=== PATIENT | male | born 1955 | race Caucasian/White ===

== ENCOUNTER → 2017-06-17 | Outpatient (CLI) | payer BC ==
--- NOTE | 2017-06-17 09:11 | US ---
EXAMINATION TYPE: US carotid duplex BILAT DATE OF EXAM: 06/17/2017 COMPARISON: NONE CLINICAL HISTORY: I25.10 Atherosclerotic heart disease, I10 Hyperten. EXAM MEASUREMENTS: RIGHT: Peak Systolic Velocity (PSV) cm/sec ----- Right CCA: 91.9 ----- Right ICA: 84.4 ----- Right ECA: 121.7 ICA/CCA ratio: 0.9 RIGHT: End Diastole cm/sec ----- Right CCA: 22.4 ----- Right ICA: 28.2 ----- Right ECA: 28.0 LEFT: Peak Systolic Velocity (PSV) cm/sec ----- Left CCA: 91.7 ----- Left ICA: 69.4 ----- Left ECA: 123.5 ICA/CCA ratio: 0.8 LEFT: End Diastole cm/sec ----- Left CCA: 21.3 ----- Left ICA: 18.7 ----- Left ECA: 27.6 VERTEBRALS (direction of flow): Right Vertebral: Antegrade Left Vertebral: Antegrade Rhythm: Normal Heterogeneous plaque noted at bilateral bulbs with no significant stenosis seen. IMPRESSION: 1. Minimal grayscale plaquing at the carotid bulbs with hemodynamically significant stenosis within e ither carotid system. 2. Symmetrically prominent velocities likely relate to underlying hypertension.
== END | disposition home or self-care (01) ==
LOC: RADUSWWP 08:19
PROVIDERS: ATTEND Internal Medicine Cardiovascular Disease
DX: I65.23 Occlusion and stenosis of bilateral carotid arteries (principal); I25.10 Atherosclerotic heart disease of native coronary artery without angina pectoris; I10 Essential (primary) hypertension; I21.4 Non-ST elevation (NSTEMI) myocardial infarction
CPT/HCPCS: 36415; 80053; 80061; 82272; 84153; 84439; 84443; 85027; 93880

== ENCOUNTER → 2017-06-17 | Outpatient (CLI) | payer BC ==
[2017-06-17 08:31] LABS: CH 31.7; CHCM 33.6; HCT 50.9 % (39.0-53.0); HGB 16.6 gm/dL (13.0-17.5); MCHC 32.7 g/dL (31.0-37.0); MCV 94.9 fL (80.0-100.0); Mean Platelet Volume 7.9; RBC 5.36 m/uL (4.30-5.90); RDW 15.5 % (11.5-15.5)
[2017-06-17 13:43] LABS: ALT 38 U/L (21-72); AST 22 U/L (17-59); Alkaline Phosphatase 98 U/L (38-126); Anion Gap 13 mmol/L; Blood Urea Nitrogen 19 mg/dL (9-20); Calcium 9.8 mg/dL (8.4-10.2); Carbon Dioxide 23 mmol/L (22-30); Chloride 107 mmol/L (98-107); Cholesterol 128 mg/dL (<200); Glucose 99 mg/dL (74-99); HDL Cholesterol 53 mg/dL (40-60); Non-African American GFR(MDRD) >60 (>60 ml/min/1.73 sqM); Potassium 4.6 mmol/L (3.5-5.1); Sodium 143 mmol/L (137-145); Total Bilirubin 0.4 mg/dL (0.2-1.3); Total Protein 7.4 g/dL (6.3-8.2)
[2017-06-17 14:51] LABS: Prostate Specific Antigen 0.38 ng/mL (0.00-4.00)
== END | disposition home or self-care (01) ==
LOC: LABWHC1 08:03
PROVIDERS: ATTEND Internal Medicine
DX: I25.10 Atherosclerotic heart disease of native coronary artery without angina pectoris (principal); I11.9 Hypertensive heart disease without heart failure; E78.2 Mixed hyperlipidemia; K21.0 Gastro-esophageal reflux disease with esophagitis; N40.0 Benign prostatic hyperplasia without lower urinary tract symptoms
CPT/HCPCS: 36415; 80053; 80061; 82272; 84153; 84439; 84443; 85027

== ENCOUNTER → 2017-12-22 | Outpatient (CLI) | payer BC ==
[~2017-12-22] MED LIST: REGADENOSON 0.4 MG/5 ML SYRINGE IV ONE
--- NOTE | 2017-12-22 11:25 | EST ---
EXERCISE STRESS AGE: 62 SEX: M HT: 69" WT: 220 PROTOCOL: Lexiscan Cardiolite Stress test HEART RATE REST: 54 BLOOD PRESSURE REST: 112/68 MAXIMUM HEART RATE ACHIEVED: 72 MAXIMUM BLOOD PRESSURE: 136/68 85% MPHR: 133 100% MPHR: 156 INDICATIONS: Chest pain, physical CLINICAL INFORMATION: A 62-year-old male patient referred for a stress test for chest pain. Baseline heart rate 54 beats per minute. Baseline blood pressure 112/68 mmHg. Baseline 12-lead ECG showed normal sinus rhythm with nonspecific ST-segment abnormalities or flattening of the T-waves. Patient received Lexiscan infusion per protocol. There was no significant change in heart rate or blood pressure. No definite ECG evidence for ischemia. No arrhythmias noted. Nuclear portion of the stress test will be reported separately. MMODL / IJN: [id number] /
--- NOTE | 2017-12-22 13:24 | NM ---
EXAMINATION TYPE: NM stress lexiscan cardiolite DATE OF EXAM: 12/22/2017 COMPARISON: NONE HISTORY: I10, I 25.10 TECHNIQUE: After the intravenous administration of 10.18 mCi Tc 99m Sestamibi - Cardiolite resting S PECT images acquired 45 minutes post injection. The patient received 0.4mg Lexiscan, 23.9 mCi Tc 99m Sestamibi - Stress images obtained [address] injection FINDINGS: Review of stress and rest SPECT images demonstrates decreased reaffirms a focal uptake along the infe rior wall left ventricle on stress and rest images extending inferolaterally. Some mild decreased upt analia present along anterior wall left ventricle extending from the apex on stress as compared to rest images is suggested. Gated analysis shows normal wall motion with an estimated left ventricular eject ion fraction of 54 %. IMPRESSION: Findings suggest previous infarct. Suspect there may be pharmacologically induced left ventricular my ocardial ischemia along the anterior apical left ventricle. Report relayed to Marlene at the office of Dr. Keller.
== END | disposition home or self-care (01) ==
LOC: RADNMMAIN 12-21 07:54
PROVIDERS: ATTEND Internal Medicine Cardiovascular Disease
DX: I25.10 Atherosclerotic heart disease of native coronary artery without angina pectoris (principal); I10 Essential (primary) hypertension
CPT/HCPCS: 93017; 78452; A9500; J2785

== ENCOUNTER → 2018-06-02 | Outpatient (CLI) | payer MEDICARE ==
[2018-06-02 08:41] LABS: HCT 50.5 % (39.0-53.0); HGB 16.8 gm/dL (13.0-17.5); MCH 30.4 pg (25.0-35.0); MCHC 33.2 g/dL (31.0-37.0); MCV 91.6 fL (80.0-100.0); Mean Platelet Volume 7.5; Platelet Count 208 k/uL (150-450); RBC 5.52 m/uL (4.30-5.90); RDW 13.7 % (11.5-15.5); WBC 8.9 k/uL (3.8-10.6)
[2018-06-02 10:19] LABS: ALT 28 U/L (21-72); AST 29 U/L (17-59); Albumin 4.4 g/dL (3.5-5.0); Alkaline Phosphatase 75 U/L (38-126); Anion Gap 12 mmol/L; Blood Urea Nitrogen 25 mg/dL (9-20); Calcium 9.8 mg/dL (8.4-10.2); Carbon Dioxide 22 mmol/L (22-30); Chloride 106 mmol/L (98-107); Cholesterol 166 mg/dL (<200); Glucose 97 mg/dL (74-99); HDL Cholesterol 42 mg/dL (40-60); LDL Cholesterol,Calculated 109 mg/dL (0-99); Potassium 4.6 mmol/L (3.5-5.1); Sodium 140 mmol/L (137-145); Total Bilirubin 0.7 mg/dL (0.2-1.3); Total Protein 7.5 g/dL (6.3-8.2); Triglycerides 77 mg/dL (<150)
[2018-06-02 10:36] LABS: T4, Free (Free Thyroxine) 1.04 ng/dL (0.78-2.19)
[2018-06-02 10:49] LABS: Prostate Specific Antigen 0.37 ng/mL (0.00-4.00)
--- NOTE | 2018-06-02 11:12 | XR ---
EXAMINATION TYPE: XR chest 2V DATE OF EXAM: 06/02/2018 COMPARISON: Prior chest x-ray 01/26/2016 HISTORY: Atherosclerotic heart disease TECHNIQUE: Frontal and lateral views of the chest are obtained. FINDINGS: There are prominent lung volumes suggesting COPD. Strand-like densities are present at the lung bases. No pneumothorax or pleural effusion. Cardiomediastinal silhouette, pulmonary vascularity and boom are stable. IMPRESSION: Probable scarring or possibly atelectatic change at the lung bases.
== END | disposition home or self-care (01) ==
LOC: LABWHC1 07:12
PROVIDERS: ATTEND Internal Medicine
DX: Z00.00 Encounter for general adult medical examination without abnormal findings (principal); I11.9 Hypertensive heart disease without heart failure; E03.9 Hypothyroidism, unspecified; I25.10 Atherosclerotic heart disease of native coronary artery without angina pectoris; E78.2 Mixed hyperlipidemia; K21.0 Gastro-esophageal reflux disease with esophagitis; N40.0 Benign prostatic hyperplasia without lower urinary tract symptoms
CPT/HCPCS: 36415; 71046; 80053; 80061; 84153; 84439; 84443; 85027

== ENCOUNTER → 2018-06-29 | Outpatient (CLI) | payer MEDICARE ==
--- NOTE | 2018-06-29 10:44 | CT ---
EXAMINATION TYPE: CT sinus wo con DATE OF EXAM: 06/29/2018 COMPARISON: None HISTORY: Sinusitis CT DLP: 523 mGycm. Automated Exposure Control for Dose Reduction was Utilized. TECHNIQUE: CT scan of the sinuses is performed without contrast, axial images are obtained, coronal r eformatted images are also reviewed. FINDINGS: The paranasal sinuses including the frontal, ethmoid, sphenoid, and maxillary sinuses bila terally are remarkable for inflammatory change in the ethmoid air cells, sphenoid sinus and bilateral maxillary sinus, there may be mucus retention cyst or polyps within the maxillary and frontal sinuse s, ostiomeatal units are patent. There is a deviated nasal septum present. Patient is rotated in Aj ry, suspect a Kentrell cell may be present on the right. Visualized portion of mastoid air cells show no abnormal opacification. The globes are intact bilate rally. IMPRESSION: Pansinusitis. Deviated nasal septum. Additional findings above.
== END | disposition home or self-care (01) ==
LOC: RADCTMAIN 08:06
PROVIDERS: ATTEND Otolaryngology
DX: J32.4 Chronic pansinusitis (principal); J34.2 Deviated nasal septum
CPT/HCPCS: 70486

== ENCOUNTER → 2020-01-27 | Outpatient (CLI) | payer MEDICARE | END | disposition home or self-care (01) | LOC: LABWHC1 12:01 | PROVIDERS: ATTEND Internal Medicine Gastroenterology | DX: Z11.59 Encounter for screening for other viral diseases (principal) | CPT/HCPCS: 87635 ==

== ENCOUNTER → 2020-02-01 | Day surgery (SDC) | payer MEDICARE ==
[2020-01-31 09:44] VITALS: BMI 33.2
[~2020-02-01] MED LIST changes: +LACTATED RINGERS 1,000 ML IV ONE; +LACTATED RINGERS 1,000 ML IV SCH; +LIDOCAINE 1% (10MG/ML) FOR IV START INTRADERMA ONE; +PROPOFOL 10 MG/ML 20 ML VIAL IV ONE; -REGADENOSON 0.4 MG/5 ML SYRINGE IV ONE
[2020-02-01 08:43] VITALS: RESP 18; TEMP 97.8
--- NOTE | 2020-02-01 09:42 | P.PCN ---
Date of Procedure: 02/01/20 Procedure(s) Performed: BRIEF HISTORY: Patient is a 64-year-old pleasant white male scheduled for an elective colonoscopy as a part of evaluation of prior history of colon polyps. Last colonoscopy was 8 years ago. PROCEDURE PERFORMED: Colonoscopy with snare polypectomy. PREOPERATIVE DIAGNOSIS: History of colon polyps IV sedation per Anesthesia. PROCEDURE: After informed consent was obtained, the patient, was brought into the endoscopy unit. IV sedation was administered by Anesthesia under continuous monitoring. Digital rectal examination was normal. Initially the Olympus CF-160 flexible video colonoscope was then inserted in the rectum, gradually advanced into the cecum without any difficulty. Careful examination was performed as the scope was gradually being withdrawn. Ileocecal valve and the appendiceal orifice were visualized and appeared normal. Prep was excellent. Mucosa of the cecum, ascending colon, appeared normal. In the proximal transverse colon there was a 5 mm and 1 cm sessile polyp removed by snare polypectomy. In the descending colon there was a 3 mm and 5 mm polyps removed by snare polypectomy. In the sigmoid colon there was a 5 mm polyp that was 1 by snare polypectomy. Rest of transverse colon, descending colon, sigmoid colon, and rectum appeared normal. In the mid rectum there was a 3 mm polyp removed by snare polypectomy. Retroflexion was performed in the rectum and grade 2 internal hemorrhoids were seen. The patient tolerated the procedure well. IMPRESSION: 5 mm and 1 cm proximal transverse colon polyp status post polypectomy 3 mm 2 descending colon polyp status post polypectomy 5 mm sigmoid colon polyp status post polypectomy 3 mm sessile rectal polyp status post snare polypectomy Small internal hemorrhoids RECOMMENDATIONS: Findings of this examination were discussed with the patient as well as his family.. She was advised to follow with the biopsy results. If the biopsy shows an adenoma he can have a repeat colonoscopy in 3 years
[2020-02-01 10:10] VITALS: BP 166/70; PULSE 59
== END ==
LOC: ORWHC2ENDO 08:16
PROVIDERS: ATTEND Internal Medicine Gastroenterology
DX: Z12.11 Encounter for screening for malignant neoplasm of colon (principal); D12.3 Benign neoplasm of transverse colon; D12.4 Benign neoplasm of descending colon; K63.5 Polyp of colon; D12.8 Benign neoplasm of rectum; K64.1 Second degree hemorrhoids; I25.2 Old myocardial infarction; I25.10 Atherosclerotic heart disease of native coronary artery without angina pectoris; I10 Essential (primary) hypertension; E78.5 Hyperlipidemia, unspecified; G47.33 Obstructive sleep apnea (adult) (pediatric); M19.90 Unspecified osteoarthritis, unspecified site; E07.9 Disorder of thyroid, unspecified; E66.9 Obesity, unspecified; Z86.010 Personal history of colon polyps; Z95.5 Presence of coronary angioplasty implant and graft; Z99.89 Dependence on other enabling machines and devices; Z79.890 Hormone replacement therapy; Z79.899 Other long term (current) drug therapy; Z98.890 Other specified postprocedural states
CPT/HCPCS: 88305; 45385; J2704

== ENCOUNTER → 2021-02-01 | Outpatient (CLI) | payer MEDICARE ==
--- NOTE | 2021-02-01 10:06 | CTL ---
EXAMINATION TYPE: CT Low Dose Lung DATE OF EXAM ORDERED: 02/01/2021 COMPARISON: None HISTORY: . Low Dose CT Lung Screening CT DLP: [address] CTDI: 3.4 mGy IV CONTRAST USED: None. SCREENING VISIT: First visit COMPARISON: None. TECHNIQUE: Low dose computed tomography scan was performed through the chest at 1 millimeter thick se ctions and reconstructed images in the coronal plane at [address] DIAGNOSTIC QUALITY: Satisfactory FINDINGS: LUNG NODULES: Not presentLeft lung: no nodules identified.Right lung: no nodules identified. LUNGS: COPD: Severity: Moderate with emphysematous bulla noted. Fibrosis: Severity:None Lymph nodes: None Other findings: None RIGHT PLEURAL SPACE: Effusion: None Calcification: None Thickening: None Pneumothorax: None LEFT PLEURAL SPACE: Effusion: None Calcification: None Thickening: None Pneumothorax: None HEART: Heart Size: Mildly enlarged Coronary calcification: Mild Pericardial effusion: None OTHER FINDINGS: Upper abdomen: No significant abnormality Bony thorax: Degenerative changes Supraclavicular region: No significant abnormalityOther: No significant abnormalityI IMPRESSION: Emphysematous changes. No evidence for pulmonary nodule at this time. FOLLOW UP CT CHEST RECOMMENDATION: Follow-up screening in one year CT LUNG RAD: LUNG RAD CATEGORY 1 negative
== END | disposition home or self-care (01) ==
LOC: RADCTMAIN 08:17
PROVIDERS: ATTEND Family Medicine
DX: Z12.2 Encounter for screening for malignant neoplasm of respiratory organs (principal); J43.9 Emphysema, unspecified; Z87.891 Personal history of nicotine dependence
CPT/HCPCS: 71271

== ENCOUNTER → 2022-03-24 | Outpatient (CLI) | payer MEDICARE ==
--- NOTE | 2022-03-24 09:18 | CTL ---
EXAMINATION TYPE: CT Low Dose Lung DATE OF EXAM ORDERED: 03/24/2022 HISTORY: History of tobacco abuse. Lung cancer screening CT DLP: 134.[address] CTDI: 3.8 mGy Automated exposure control for dose reduction was used. SCREENING VISIT: Follow-up COMPARISON: CT Low Dose Lung 02/01/2021 TECHNIQUE: Low dose computed tomography scan was performed through the chest at 1 mm thick sections a nd reconstructed images in multiple planes at 1 mm and [address] DIAGNOSTIC QUALITY: Satisfactory FINDINGS: LUNG NODULES: None. LUNGS: COPD: Severity: Moderate with similar emphysematous bulla noted most prominently in the right lower l obe. Fibrosis: Severity: None Lymph nodes: None Other findings: None RIGHT PLEURAL SPACE: Effusion: None Calcification: None Thickening: None Pneumothorax: None LEFT PLEURAL SPACE: Effusion: None Calcification: None Thickening: None Pneumothorax: None HEART: Heart Size: Mildly Enlarged Coronary Calcification: Moderate Pericardial Effusion: None OTHER FINDINGS: Upper abdomen: None Bony thorax: Degenerative changes. Supraclavicular region: None Other: None IMPRESSION: Similar emphysematous changes. No evidence pulmonary nodule at this time. CT LUNG RAD AND CT CHEST RECOMMENDATION: Lung-Rad 1 Negative: Continue annual screening with LDCT in 12 months.
== END | disposition home or self-care (01) ==
LOC: RADCTMAIN 07:52
PROVIDERS: ATTEND Family Medicine
DX: J43.9 Emphysema, unspecified (principal); Z87.891 Personal history of nicotine dependence
CPT/HCPCS: 71271

== ENCOUNTER → 2023-05-06 | Outpatient (CLI) | payer MEDICARE ==
--- NOTE | 2023-05-06 09:08 | CTL ---
EXAMINATION TYPE: CT Low Dose Lung DATE OF EXAM ORDERED: 05/06/2023 COMPARISON: HISTORY: . Low Dose CT Lung Screening CT DLP: 140.[address] CTDI: 3.8 mGy IV CONTRAST USED: None. SCREENING VISIT: First visit COMPARISON: None. TECHNIQUE: Low dose computed tomography scan was performed through the chest at 1 millimeter thick se ctions and reconstructed images in the coronal plane at [address] DIAGNOSTIC QUALITY: Satisfactory FINDINGS: LUNG NODULES: Not presentLeft lung: no nodules identified.Right lung: no nodules identified. LUNGS: COPD: Severity: Moderate. Paraseptal emphysema greatest at the right lung base. Fibrosis: Severity: Mild at the lung bases. Lymph nodes: None Other findings: None RIGHT PLEURAL SPACE: Effusion: None Calcification: None Thickening: None Pneumothorax: None LEFT PLEURAL SPACE: Effusion: None Calcification: None Thickening: None Pneumothorax: None HEART: Heart Size: Mildly enlarged Coronary calcification: Moderate Pericardial effusion: None OTHER FINDINGS: Upper abdomen: No significant abnormality Bony thorax: Degenerative changes Supraclavicular region: No significant abnormalityOther: No significant abnormalityI IMPRESSION: No evidence of pulmonary nodularity. Similar emphysematous changes are FOLLOW UP CT CHEST RECOMMENDATION: Follow-up screening in one year CT LUNG RAD: LUNG RAD CATEGORY 1 negative
== END | disposition home or self-care (01) ==
LOC: RADCTMAIN 08:16
PROVIDERS: ATTEND Family Medicine
DX: Z12.2 Encounter for screening for malignant neoplasm of respiratory organs (principal); F17.210 Nicotine dependence, cigarettes, uncomplicated; J43.9 Emphysema, unspecified
CPT/HCPCS: 71271

== ENCOUNTER → 2023-05-21 | Outpatient (CLI) | payer MEDICARE ==
--- NOTE | 2023-05-21 15:39 | US ---
EXAMINATION TYPE: US kidneys/renal and bladder DATE OF EXAM: 05/21/2023 COMPARISON: None CLINICAL INDICATION: Male, 68 years old with history of N28.1 RENAL CYST CYST OF KIDNEY, ACQUIRED; Amadeo thomason states an MRI at outside facility showed renal cyst EXAM MEASUREMENTS: Right Kidney: 11.5 x 6.1 x 5.7 cm Left Kidney: 11.9 x 4.7 x 5.3 cm Right Kidney: No hydronephrosis or masses seen Left Kidney: lower medial cystic appearing lesion = 1.3 x 1.4 x1.4 cm Bladder: distended, anechoic Bilateral Jets seen IMPRESSION: No hydronephrosis. A benign 1.4 cm lower pole cortical cyst left kidney.
== END | disposition home or self-care (01) ==
LOC: RADUSWWP 08:27
PROVIDERS: ATTEND Family Medicine
DX: N28.1 Cyst of kidney, acquired (principal)
CPT/HCPCS: 76770

== ENCOUNTER → 2023-12-04 | Outpatient (CLI) | payer MEDICARE ==
[2023-12-04 11:45] LABS: HCT 43.9 % (39.6-50.0); HGB 14.9 g/dL (13.0-17.0); MCH 31.5 pg (27.0-32.0); MCHC 33.9 g/dL (32.0-37.0); MCV 92.8 FL (80.0-97.0); Mean Platelet Volume 10.2 FL (9.5-12.2); NRBC Per 100 WBC 0 X 10*3/uL (0.00-0.01); Platelet Count 167 X 10*3/uL (140-440); RBC 4.73 X 10*6/uL (4.40-5.60); RDW 13.8 % (11.5-14.5); WBC 8.67 X 10*3/uL (4.50-10.00)
[2023-12-04 12:04] LABS: Blood Urea Nitrogen 19.3 mg/dL (9.0-27.0); Chloride 105 mmol/L (96-109); Potassium 4.3 mmol/L (3.5-5.5); Sodium 143 mmol/L (135-145)
== END | disposition home or self-care (01) ==
LOC: LABPAT 06:52
PROVIDERS: ATTEND Internal Medicine Interventional Cardiology
DX: Z01.812 Encounter for preprocedural laboratory examination (principal); I25.10 Atherosclerotic heart disease of native coronary artery without angina pectoris; R06.02 Shortness of breath
CPT/HCPCS: 36415; 80051; 82565; 84520; 85027

== ENCOUNTER 2023-12-17 06:12 | Day surgery (SDC) | payer MEDICARE ==
[~2023-12-17 06:12] MED LIST changes: +ALPRAZolam 0.25 MG TAB PO PRN; +ALPRAZolam 0.5 MG TAB PO PRN; +ASPIRIN 325 MG TAB PO STA; +HEPARIN SODIUM,PORCINE (1 ML) 2,500 UNIT in SODIUM CHLORIDE 0.9% 250 ML IRRIGATION PRN; +HEPARIN SODIUM,PORCINE 10,000 UNIT in SODIUM CHLORIDE 0.9% 1,000 ML IRRIGATION PRN; -LACTATED RINGERS 1,000 ML IV ONE; -LACTATED RINGERS 1,000 ML IV SCH; -LIDOCAINE 1% (10MG/ML) FOR IV START INTRADERMA ONE; +NITROGLYCERIN SL TABS 0.4 MG TAB SUBLINGUAL PRN; -PROPOFOL 10 MG/ML 20 ML VIAL IV ONE; +SODIUM CHLORIDE 0.9% 1,000 ML in EMPTY BAG 1 BAG IV SCH
[2023-12-17] MEDS ORDERED: HEPARIN SODIUM 1,000 UN/ML (10ML VL) ONE (07:12)
[2023-12-17] MEDS ORDERED: VERAPAMIL 2.5 MG/ML 2 ML AMP ONE (07:12)
[2023-12-17] MEDS ORDERED: LIDOCAINE 1% INJ 10MG/ML (20 ML MDV) ONE (07:12)
[2023-12-17] MEDS: SODIUM CHLORIDE 0.9% 1,000 ML IV ONE (07:18)
[2023-12-17 07:35] VITALS: RESP 16; TEMP 98.1
[2023-12-17] MEDS: MIDAZOLAM 2 MG/2 ML VIAL IVP ONE (07:54)
[2023-12-17] MEDS: HEPARIN SODIUM 1,000 UN/ML (10ML VL) IVP ONE (07:55)
[2023-12-17] MEDS: LIDOCAINE 1% INJ 10MG/ML (20 ML MDV) SQ ONE (07:55)
[2023-12-17] MEDS: VERAPAMIL SYRINGE (5 MG/10 ML) INTRAARTER ONE (07:58)
[2023-12-17] MEDS ORDERED: NITROGLYCERIN SL TABS 0.4 MG TAB SUBLINGUAL ONE (08:13)
[2023-12-17] MEDS: NITROGLYCERIN SL TABS 0.4 MG TAB SUBLINGUAL ONE (08:14)
[2023-12-17] MEDS ORDERED: MORPHINE SULFATE 4 MG/ML SYRINGE ONE (08:16)
[2023-12-17] MEDS: MORPHINE SULFATE 4 MG/ML SYRINGE IVP ONE (08:17)
[2023-12-17] MEDS: IOPAMIDOL-370 100ML BTL INJ ONE (08:22)
[2023-12-17] MEDS ORDERED: RX INFO: IV CONTRAST WAS GIVEN 1 EACH MISC MISCELLANE PRN (08:23)
--- NOTE | 2023-12-17 08:28 | P.PCN ---
Date of Procedure: 12/17/23 Operative Findings: CARDIAC CATHETERIZATION PERFORMING PHYSICIAN: William Long MD, RPVI PROCEDURE PERFORMED: 1. Selective right and left coronary angiogram 2. Left heart catheterization 3. Ultrasound-guided access of the right radial artery 4. IFR of the LAD INDICATION: Symptomatic 68-year-old gentleman with abnormal myocardial perfusion imaging stress test. The patient is known to have CAD with prior revascularization COMPLICATION: None APPROACH: Right radial artery LEVEL OF SEDATION: Moderate with a sedation length of 27 minutes PROCEDURE DESCRIPTION: After obtaining an informed consent, the patient was brought to cardiac medical laboratory technical officer. Local anesthesia was performed using lidocaine subcutaneously. The right radial artery was cannulated using Seldinger technique, the guidewire passed easily, following that we advanced a 5-Lao sheath dilator assembly, the wire and dilator were removed and sheath was flushed. Following that, 2 mg of verapamil along with 5000 unit heparin were given. Selective right and left coronary angiogram using a 6-Lao JR4 and JL 3.5 catheters. Left heart catheterization was performed using the JR4 catheter which crossed the aortic valve. After reviewing the angiogram we decided to do an FFR of the LAD. After zeroing the Doppler wire and equalizing between the Doppler wire and guiding catheter which was JL 3.5 guiding catheter the left main was engaged and the LAD was wired. I did normalization at the left main coronary artery via subsequently the LAD was wired. We did an IFR and that came in to be at 0.99 which is nonischemic. The procedure was completed there was no complication. SELECTIVE CORONARY ANGIOGRAM: The right coronary artery: Large-caliber vessel nondominant vessel appears to be angiographically normal Left main: Is angiographically normal The left circumflex: Large-caliber vessel nondominant vessel appears to be angiographically normal and gives rise into a large OM branch which seems to be normal The left anterior descending artery: Large-caliber vessel proximally. Gives rise into a large diagonal branch which appears to be normal with the LAD after that becomes a medium caliber vessel with intermediate lesion appears to be nonflow limiting. It is hard to tell if the LAD was chronically occluded or what ever was seeing is the LAD or a diagonal branch. I am going to review the last heart catheterization from [facility] HEMODYNAMICS: The LVEDP was 12 mmHg with no significant gradient across aortic valve CONCLUSION: 1. Intermediate lesion involving the LAD versus possible diagonal branch. The lesion is not flow-limiting by Doppler wire 2. Normal left-sided filling pressure POSTPROCEDURE MANAGEMENT: []
[2023-12-17] MEDS ORDERED: SODIUM CHLORIDE 0.9% 1,000 ML IV SCH (08:30)
[2023-12-17 15:42] VITALS: BP 125/64; PULSE 58
== END 2023-12-17 12:27 | disposition home or self-care (01) ==
LOC: CATHCVL 06:12
PROVIDERS: ATTEND Internal Medicine Interventional Cardiology
DX: I25.10 Atherosclerotic heart disease of native coronary artery without angina pectoris (principal); I10 Essential (primary) hypertension; J44.9 Chronic obstructive pulmonary disease, unspecified; E78.5 Hyperlipidemia, unspecified; F17.210 Nicotine dependence, cigarettes, uncomplicated; Z82.49 Family history of ischemic heart disease and other diseases of the circulatory system; Z79.899 Other long term (current) drug therapy
CPT/HCPCS: 93458; 93799; C1887; C1769 ×2; C1894; J2250; J2270; J2001; J1644; Q9967

== ENCOUNTER → 2024-05-25 | Outpatient (CLI) | payer MEDICARE ==
--- NOTE | 2024-05-25 16:14 | CTL ---
EXAMINATION TYPE: CT Low Dose Lung DATE OF EXAM ORDERED: 05/25/2024 HISTORY: Personal history of tobacco use, quit smoking 10 years ago. 35 pack-year history. Lung cance r screening CT DLP: 164.[address] CTDI: 4.0 mGy Automated exposure control for dose reduction was used. SCREENING VISIT: Follow-up COMPARISON: CT Low Dose Lung 05/06/2023, 03/24/2022, 02/01/2021. TECHNIQUE: Low dose computed tomography scan was performed through the chest at 1 mm thick sections a nd reconstructed images in multiple planes at 1 mm and [address] DIAGNOSTIC QUALITY: Satisfactory FINDINGS: LUNG NODULES: None. LUNGS: COPD: Severity: Moderate with similar emphysematous bulla noted most prominently in the right lower l obe. Fibrosis: Severity: Mild Lymph nodes: None Other findings: None RIGHT PLEURAL SPACE: Effusion: None Calcification: None Thickening: None Pneumothorax: None LEFT PLEURAL SPACE: Effusion: None Calcification: None Thickening: None Pneumothorax: None HEART: Heart Size: Mildly Enlarged Coronary Calcification: Moderate Pericardial Effusion: None OTHER FINDINGS: Upper abdomen: None Bony thorax: Degenerative changes. Partial visualization of lumbar fusion hardware. Supraclavicular region: None Other: Mild atherosclerotic calcification of the aorta and its branches. IMPRESSION: Similar emphysematous changes. No clinically significant pulmonary nodule. CT LUNG RAD AND CT CHEST RECOMMENDATION: Lung-Rad 1 Negative: Continue annual screening with LDCT in 12 months.
== END | disposition home or self-care (01) ==
LOC: RADCTMAIN 08:00
PROVIDERS: ATTEND Family Medicine
DX: Z12.2 Encounter for screening for malignant neoplasm of respiratory organs (principal); J43.9 Emphysema, unspecified; F17.210 Nicotine dependence, cigarettes, uncomplicated; I70.0 Atherosclerosis of aorta
CPT/HCPCS: 71271

== ENCOUNTER → 2024-10-17 | Outpatient (CLI) | payer MEDICARE ==
[2024-10-17 08:18] VITALS: BP 129/72; PULSE 63; RESP 15
--- NOTE | 2024-10-17 16:13 | P.PAINPG ---
PQRS Measure Charge Sheet Comment: HISTORY OF PRESENT ILLNESS: A 69 yr old male as a referral from [facility] presents today w severe and chronic LBP > 1 yr secondary to L1-L2 severe stenosis, post L2-L5 Decompression w Fusion syndrome for evaluation. Pt states pain level is provoked at 6 /10 in intensity, constant, localized in the lumbar spine, predominantly axial, achy in character w occasional shooting pain towards the upper back. Pain is provoked by over activity. Pain is alleviated by PT x 6 wks which ended in 2020, physician guided home stretches daily since 2020, Icy-Hot topical, manual massage, repositioning and rest . Oswestry axial pain score at 32. PMH: OA, CAD, Skin CA, Hyperlipidemia, HTN, Emphysema, Hypothyroidism, Hepatitis A PSH: Cervical Fusion, BL Knee Arthroscopies, Lumbar Laminectomy (2015), Cardiac Cath w Stent (2015), Angiogram (2023), Colonoscopy (2023) SH: Former tobacco user, Occ ETOH use, No illicit drug use FH: Fa- CVA. Mo- Breast CA All: See list Meds: See list REVIEW OF ORGAN SYSTEMS: CONSTITUTIONAL: No fevers or chills. No recent weight loss. NEUROLOGICAL: + numbness and tingling along the distal extremities. No seizure disorders or headaches. MUSCULOSKELETAL: + pain PSYCHIATRIC: Denies current depression or suicidal thoughts. Physical Examinations : Constitutional : Cooperative , not in acute distress . Neurologic : Cranial nerve II to XII intact. No focal neurological deficits. Psychiatric : alert & oriented x 3. Matching mood & appropriate affect. Judgment & insight intact. Musculoskeletal : Cervical Spine Motor strength in the deltoid and biceps: Normal right side. Normal Left side Motor strength biceps and the wrist extensors: Normal right side . Normal left side Motor strength in the triceps muscle: Normal right side. Normal left side Deep tendon reflexes: Normal at the biceps. Normal at Brachioradialis. Normal at triceps Vertebral body tenderness to deep palpation over Cervical facet loading test: positive bilaterally Spurling test: positive bilaterally Neck distraction test: positive bilaterally Layo sign: positive bilaterally Lumbar spine +Incisional scars Motor strength lower extremities ,thigh and legs 5/5 Right side , 5/5 Left side Deep tendon reflexes : Normal Knee Jerk. Normal Ankle Jerk Vertebral body tenderness over Poe Test positive L1-L2 BL Lumbar facet Loading Test: positive Right / positive Left Range of motion of the lumbar spine Flexion 30 degrees, extension 10 degrees Straight Leg Raise test: Left/ Right positive at degrees Lane test: positive right / positive left. Severe tenderness over the Sacroiliac joint on the Right / Left sides Gaenslen test: positive bilaterally Seated flexion test: positive bilaterally. Sacral spine : Severe tenderness over the Sacroiliac joint: right side / left side Range of motion: Flexion of the lumbar spine <60 degrees Range of motion: Extension of the lumbar spine <20 degrees [address]enslen's Test positive Lane test: positive right side / left side Thigh Thrust Test Sacral Thrust Test Imaging: MRI non contrast lumbar spine from 04/27/23 reviewed Assessment/ Plan : post L2-L5 Decompression w Fusion syndrome, L1-L2 severe stenosis Recommendation of medication management. Opiate/ narcotic agreement signed 10/17/24. Valdez 7.5/325mg #60 1 RF. Use, side effects, adverse reactions, safe storage discussed. All questions answered. I have spent greater than 30 minutes on patient care today. Dr Rosado was available by phone for the evaluation of this patient. The time was used to review the medical records including relevant urine studies and Prescription history (MAPs), review of the available imaging, evaluation and examination of the patient, coordination of care with the medical staff and if applicable referring physicians, as well as creation of the medical record - Pain Location Lower Back Non-Pharmacological Interventions: Position/Reposition, Sitting Pharmacological Interventions: Topical Medication PQRS Narrative: Smoking Status Former smoker Home Medications: Ambulatory Orders Enalapril [Vasotec] 10 mg PO HS 07/01/16 Levothyroxine Sodium [Synthroid] 75 mcg PO QAM 07/01/16 Metoprolol Tartrate [Lopressor] 25 mg PO BID 07/01/16 Ibuprofen [Motrin] 600 mg PO DIRECTED PRN 02/17/19 amLODIPine [Norvasc] 5 mg PO QAM 02/17/19 Aspirin [Adult Low Dose Aspirin EC] 81 mg PO QAM 12/10/23 Fluticasone/Umeclidin/Vilanter [Trelegy Ellipta 200-62.5-25] 1 dose INHALATION DAILY 12/10/23 Furosemide [Lasix] 20 mg PO QAM 12/10/23 Omeprazole 40 mg PO HS 12/10/23 polyethylene glycoL 3350 [Miralax] 17 gm PO Q48H 12/10/23 HYDROcodone/APAP 7.5-325MG [Valdez 7.5-325] 1 tab PO BID PRN 30 Days #60 tab 10/17/24 HYDROcodone/APAP 7.5-325MG [Valdez 7.5-325] 1 tab PO BID PRN 30 Days #60 tab 10/17/24 Controlled Substance Measures - Controlled Substance Measures Is patient prescribed a controlled substance at discharge?: Yes When asked, does pt state using other controlled substances?: No If prescribed controlled substance>3 days was MAPS reviewed?: Yes If Rx opioid, was Start Talking consent form obtained?: Yes Was information provided regarding opioid addiction?: Yes
== END ==
LOC: PNWHC3 07:37
PROVIDERS: ATTEND Specialist
DX: M48.061 Spinal stenosis, lumbar region without neurogenic claudication (principal); M43.26 Fusion of spine, lumbar region; Z87.891 Personal history of nicotine dependence
CPT/HCPCS: 99211

== ENCOUNTER → 2024-12-08 | Outpatient (CLI) | payer MEDICARE ==
[2024-12-08 08:54] VITALS: BP 126/78; PULSE 69; RESP 16; TEMP 97.7
--- NOTE | 2024-12-08 14:21 | P.PAINPG ---
PQRS Measure Charge Sheet Comment: HISTORY OF PRESENT ILLNESS: A 69 yr old male presents today w severe and chronic LBP > 1 yr secondary to L1-L2 severe stenosis, post L2-L5 Decompression w Fusion syndrome for medication refills. Pt states pain level is provoked at 3-7 /10 in intensity, constant, localized in the lumbar spine, predominantly axial, achy in character w occasional shooting pain towards the hips and upper back. Pain is provoked by over activity. Pain is alleviated by PT x 6 wks which ended in 2020, physician guided home stretches daily since 2020, Icy-Hot topical, manual massage, repositioning and rest . Oswestry axial pain score at 32. Interventional procedures include Medications include [place] 7.5/325mg #60, Ibu REVIEW OF ORGAN SYSTEMS: CONSTITUTIONAL: No fevers or chills. No recent weight loss. NEUROLOGICAL: + numbness and tingling along the distal extremities. No seizure disorders or headaches. MUSCULOSKELETAL: + pain PSYCHIATRIC: Denies current depression or suicidal thoughts. Physical Examinations : Constitutional : Cooperative , not in acute distress . Neurologic : Cranial nerve II to XII intact. No focal neurological deficits. Psychiatric : alert & oriented x 3. Matching mood & appropriate affect. Judgment & insight intact. Musculoskeletal : Cervical Spine Motor strength in the deltoid and biceps: Normal right side. Normal Left side Motor strength biceps and the wrist extensors: Normal right side . Normal left side Motor strength in the triceps muscle: Normal right side. Normal left side Deep tendon reflexes: Normal at the biceps. Normal at Brachioradialis. Normal at triceps Vertebral body tenderness to deep palpation over Cervical facet loading test: positive bilaterally Spurling test: positive bilaterally Neck distraction test: positive bilaterally Layo sign: positive bilaterally Lumbar spine +Incisional scars Motor strength lower extremities ,thigh and legs 5/5 Right side , 5/5 Left side Deep tendon reflexes : Normal Knee Jerk. Normal Ankle Jerk Vertebral body tenderness over Poe Test positive L1-L2 BL Lumbar facet Loading Test: positive Right / positive Left Range of motion of the lumbar spine Flexion 30 degrees, extension 10 degrees Straight Leg Raise test: Left/ Right positive at degrees Lane test: positive right / positive left. Severe tenderness over the Sacroiliac joint on the Right / Left sides Gaenslen test: positive bilaterally Seated flexion test: positive bilater ally. Sacral spine : Severe tenderness over the Sacroiliac joint: right side / left side Range of motion: Flexion of the lumbar spine <60 degrees Range of motion: Extension of the lumbar spine <20 degrees Gaenslen's Test positive Lane test: positive right side / left side Thigh Thrust Test Sacral Thrust Test Imaging: MRI non contrast lumbar spine from 04/27/23 reviewed Assessment/ Plan : post L2-L5 Decompression w Fusion syndrome, L1-L2 severe stenosis Recommendation of medication management. UDS collected 12/08/24. Opiate/ narcotic agreement signed 10/17/24. [place] 7.5/325mg #60 1 RF. Use, side effects, adverse reactions, safe storage discussed. All questions answered. I have spent greater than 30 minutes on patient care today. Dr Rosado was available by phone for the evaluation of this patient. The time was used to review the medical records including relevant urine studies and Prescription history (MAPs), review of the available imaging, evaluation and examination of the patient, coordination of care with the medical staff and if applicable referring physicians, as well as creation of the medical record PQRS Narrative: Smoking Status Former smoker Hx Alcohol Use (MH) No Home Medications: Ambulatory Orders Enalapril [Vasotec] 10 mg PO HS 07/01/16 Levothyroxine Sodium [Synthroid] 75 mcg PO QAM 07/01/16 Metoprolol Tartrate [Lopressor] 25 mg PO BID 07/01/16 Ibuprofen [Motrin] 600 mg PO DIRECTED PRN 02/17/19 amLODIPine [Norvasc] 5 mg PO QAM 02/17/19 Aspirin [Adult Low Dose Aspirin EC] 81 mg PO QAM 12/10/23 Fluticasone/Umeclidin/Vilanter [Trelegy Ellipta 200-62.5-25] 1 dose INHALATION DAILY 12/10/23 Furosemide [Lasix] 20 mg PO QAM 12/10/23 Omeprazole 40 mg PO HS 12/10/23 polyethylene glycoL 3350 [Miralax] 17 gm PO Q48H 12/10/23 HYDROcodone/APAP 7.5-325MG [[place] 7.5-325] 1 tab PO BID PRN 30 Days #60 tab 10/17/24 HYDROcodone/APAP 7.5-325MG [[place] 7.5-325] 1 tab PO BID PRN 30 Days #60 tab 10/17/24 Controlled Substance Measures - Controlled Substance Measures Is patient prescribed a controlled substance at discharge?: Yes When asked, does pt state using other controlled substances?: No If prescribed controlled substance>3 days was MAPS reviewed?: Yes
== END ==
LOC: PNWHC3 07:48
PROVIDERS: ATTEND Specialist
DX: M48.061 Spinal stenosis, lumbar region without neurogenic claudication (principal); M43.26 Fusion of spine, lumbar region; Z98.890 Other specified postprocedural states; Z87.891 Personal history of nicotine dependence
CPT/HCPCS: 99212